=== PATIENT | male | born 1985 | race Asian ===

== ENCOUNTER 2023-07-15 12:52 | Outpatient (REF) | payer OTHER, SELFPAY ==
--- NOTE | ~2023-07-15 | US_ITS ---
EXAMINATION: US RETROPERITONEAL COMPLETE (RENAL) CLINICAL INFORMATION: Hematuria. COMPARISON: None available. TECHNIQUE: Real-time imaging of the kidneys and bladder. FINDINGS: RIGHT KIDNEY: 10.3 x 5.3 x 5.6 cm (SAG x AP x TRV). The kidney is normal in size, contour, and echogenicity. Renal cortical thickness is normal. No calculi or focal parenchymal lesions. No hydronephrosis. LEFT KIDNEY: 10.8 x 5.6 x 4.9 cm (SAG x AP x TRV). The kidney is normal in size, contour, and echogenicity. Renal cortical thickness is normal. No focal parenchymal lesions or hydronephrosis. 0.6 x 0.6 x 0.7 cm nonobstructing calculus is seen in the mid kidney. BLADDER: Well distended and normal. Bilateral ureteral jets are demonstrated. Prevoid bladder volume is 203 mL. Postvoid bladder volume is 1.7 mL. Prostate volume 15.0 mL. US/US retroperitoneal comp IMPRESSION: 1. Normal appearance of the right kidney. 2. 0.7 cm nonobstructing calculus in the mid left kidney. 3. Normal appearance of the bladder.
== END 2023-07-15 12:53 | disposition home or self-care (01) ==
LOC: HO.UMASIMG 12:52
PROVIDERS: Visit Provider Physician Assistant
DX: R31.9 Hematuria, unspecified (principal)
CPT/HCPCS: 76770